=== PATIENT | male | born 1965 | race African-American/Black ===

== ENCOUNTER 2016-12-31 11:49 | Inpatient (IN) | payer OTHER ==
[2016-12-31 13:13] VITALS: BMI 19.5
--- NOTE | 2016-12-31 14:47 | HP ---
CIWA Score - CIWA Score Nausea/Vomitin (N/V) Muscle Tremors: 3 Anxiety: 4-Mod. Anxious/Guarded Agitation: 3 Paroxysmal Sweats: 1-Minimal Palms Moist Orientation: 0-Oriented Tacttile Disturbances: 3-Moderate Itch/Numb/Burn Auditory Disturbances: 0-None Visual Disturbances: 0-None Headache: 0-None Present CIWA-Ar Total Score: 19 Admission ROS BHS - HPI Chief Complaint: DETOX TX FOR ALCOHOL DEPENDENCE/INTOXICATION. "I NEEDED TO COME IN" Allergies/Adverse Reactions: Allergies Allergy/AdvReac Type Severity Reaction Status Date / Time No Known Allergies Allergy Verified 12/31/16 14:45 History of Present Illness: 51 Y/O AA/MALE WITH A HX OF ALCOHOL DEPENDENCE SEEKING DETOX TX. FIRST TIME HERE. Exam Limitations: No Limitations - Ebola screening Have you traveled outside of the country in the last 21 days: No Have you had contact with anyone from an Ebola affected area: No Have you been sick,other than usual withdrawal symptoms: No Do you have a fever: No - Review of Systems Constitutional: Chills, Loss of Appetite, Night Sweats, Changes in sleep, Unintentional Wgt. Loss EENT: reports: Blurred Vision (WEARS GLASSES), Dental Problems (IN POOR REPAIR/ ABSCESS RIGHT LOWER JAW.), Mouth Swelling (RIGHT LOWER JAW SWELLING) Respiratory: reports: No Symptoms reported Cardiac: reports: Lightheadedness GI: reports: Diarrhea, Nausea, Poor Appetite, Poor Fluid Intake, Vomiting, Indigestion, Abdominal cramping : reports: Frequency Musculoskeletal: reports: Back Pain, Joint Pain (CHRONIC LEFT KNEE PAIN/ LEFT SHOULDER PAIN), Joint Swelling (LEFT KNEE), Muscle Pain Integumentary: reports: No Symptoms Reported Neuro: reports: Headache, Numbness, Tingling, Tremors, Unsteady Gait, Dizziness Endocrine: reports: No Symptoms Reported Hematology: reports: No Symptoms Reported Psychiatric: reports: Orientated x3, Anxious Other Systems: Reviewed and Negative Patient History - Patient Medical History Hx Anemia: No Hx Asthma: No Hx Chronic Obstructive Pulmonary Disease (COPD): No Hx Cardiac Disorders: Yes ("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) Hx Hypertension: Yes (ON NORVASC) Hx Hypercholesterolemia: No HX Cerebrovascular Accident: No Hx Seizures: No Hx Diabetes: No Hx Gastrointestinal Disorders: Yes (DYSPEPSIA/STOMACH PAIN) Hx Genitourinary Disorders: No Hx Sexually Transmitted Disorders: No Hx Renal Disease (ESRD): No Hx Thyroid Disease: No Hx Human Immunodeficiency Virus (HIV): Yes (SINCE 2001;ATRIPLA) Hx Hepatitis C: No Hx Depression: No Hx Suicide Attempt: No (DENIES) Hx Bipolar Disorder: No Hx Schizophrenia: No - Patient Surgical History Past Surgical History: No Hx Neurologic Surgery: No Hx Cataract Extraction: No Hx Cardiac Surgery: No Hx Lung Surgery: No Hx Breast Surgery: No Hx Breast Biopsy: No Hx Abdominal Surgery: No Hx Appendectomy: No Hx Cholecystectomy: No Hx Genitourinary Surgery: No Hx Orthopedic Surgery: No Anesthesia Reaction: No - PPD History Previous Implant?: Yes Documented Results: Negative w/o proof Implanted On Prior R Admission?: No PPD to be Administered?: Yes - Reproductive History Patient is a Female of Child Bearing Age (11 -55 yrs old): No (MALE) Patient : (N/A) - Smoking Cessation Smoking history: Current every day smoker Have you smoked in the past 12 months: Yes Aproximately how many cigarettes per day: 5 Hx Chewing Tobacco Use: No Initiated information on smoking cessation: Yes 'Breaking Loose' booklet given: 12/31/16 - Substance & Tx. History Hx Alcohol Use: Yes (VODKA) Hx Substance Use: Yes (MARIJUANA) Substance Use Type: Alcohol, Marijuana Hx Substance Use Treatment: Yes (LAST TX AT [facility] DETOX) - Substances Abused VODKA Route: Oral Frequency: Daily Amount used: 2 PTS Age of first use: 16 Date of Last Use: 12/31/16 Marijuana/Hashish Route: Smoking Frequency: Daily Amount used: 2 $10 BAGS Age of first use: 9 Date of Last Use: 12/31/16 Family Disease History - Family Disease History Family Disease History: CA: Father (), Mother (STOMACH-) Admission Physical Exam BHS - Vital Signs Vital Signs: Vital Signs - 24 hr 12/31/16 13:02 Temperature 97.3 F L Pulse Rate 103 H Respiratory 20 Rate Blood Pressure 118/76 - Physical General Appearance: Yes: Moderate Distress, Alcohol on Breath, Intoxicated, Thin , Irritable, Anxious HEENTM: Yes: EOMI, Normocephalic, FAITH, Pharynx Normal, Nasal Congestion, Other (LEFT LOWER JAW SWELLING/) Respiratory: Yes: Chest Non-Tender, Lungs Clear, Normal Breath Sounds, No Respiratory Distress Neck: Yes: No masses,lesions,Nodules, Supple, Trachea in good position Breast: Yes: Breast Exam Deferred Cardiology: Yes: Regular Rhythm, S1, S2, Tachycardia Abdominal: Yes: Normal Bowel Sounds, Non Tender, Flat, Soft, Protuberent Genitourinary: Yes: Other (N/C) Musculoskeletal: Yes: full range of Motion, Gait Steady Extremities: Yes: Normal Range of Motion, Non-Tender Neurological: Yes: shuttle bus driver II-XII NML intact, Fully Oriented, Alert Integumentary: Yes: Dry, Warm Lymphatic: Yes: Within Normal Limits - Diagnostic (1) Alcohol dependence with uncomplicated withdrawal Current Visit: Yes Status: Acute (2) Cannabis dependence, uncomplicated Current Visit: Yes Status: Acute (3) HIV (human immunodeficiency virus infection) Current Visit: Yes Status: Chronic (4) Tooth abscess Current Visit: Yes Status: Acute (5) Knee pain, left Current Visit: Yes Status: Chronic Qualifiers: Chronicity: chronic Qualified Code(s): M25.562 - Pain in left knee; G89.29 - Other chronic pain Cleared for Admission BHS - Detox or Rehab Detox Regimen/Protocol: Librium S Breath Alcohol Content Breath Alcohol Content: 0.151 Urine Drug Screen - Results Drug Screen Negative: No Urine Drug Screen Results: THC-Marijuana
[2016-12-31] MEDS ORDERED: MAGNESIUM HYDROX 2400MG/30ML ORAL SUSPENSION 30 ML CUP PO PRN (15:33)
[2016-12-31] MEDS ORDERED: LOPERAMIDE HCL 2 MG CAPSULE PO PRN (15:33)
[2016-12-31] MEDS ORDERED: P-EPHED 60MG/TRIPROLIDI 2.5MG TABLET PO PRN (15:33)
[2016-12-31] MEDS ORDERED: IBUPROFEN 400 MG TABLET (FP) PO PRN (15:33)
[2016-12-31] MEDS ORDERED: chlordiazePOXIDE HCL 25 MG CAPSULE PO PRN (15:33)
[2016-12-31] MEDS ORDERED: NICOTINE POLACRILEX 2 MG GUM BC PRN (15:33)
[2016-12-31] MEDS ORDERED: MENTHOL/PHENOL 1 EACH UD MM PRN (15:33)
[2016-12-31] MEDS ORDERED: ACETAMINOPHEN 325 MG TABLET (FP) PO PRN (15:33)
[2016-12-31] MEDS ORDERED: MAG HYDROX/AL HYDROX/SIMETH 30 ML UNIT-DOSE CUP PO PRN (15:33)
[2016-12-31] MEDS ORDERED: guaiFENesin/D-METHORPHAN HB 10 ML UNIT-DOSE CUPS PO PRN (15:33)
[2016-12-31] MEDS ORDERED: MAGNESIUM CITRATE 300 ML BOTTLE PO PRN (15:33)
[2016-12-31] MEDS ORDERED: chlordiazePOXIDE HCL 25 MG CAPSULE PO ONE (18:00)
[2016-12-31] MEDS: CLINDAMYCIN HCL 150 MG CAPSULE (FP) PO SCH (20:30)
[2016-12-31] MEDS: NICOTINE 14 MG/24 HOURS TOPICAL PATCH TD SCH (20:31)
[2016-12-31] MEDS: chlordiazePOXIDE HCL 25 MG CAPSULE PO SCH ×2 (20:31→22:16)
[2016-12-31] MEDS: THIAMINE HCL 100 MG TABLET (FP) PO SCH (22:16)
[2016-12-31] MEDS: RANITIDINE HCL 150 MG TABLET (FP) PO SCH (22:16)
[2017-01-01 00:09] LABS: URINE APPEARANCE CLEAR; URINE BILIRUBIN NEGATIVE (NEGATIVE); URINE BLOOD NEGATIVE (NEGATIVE); URINE COLOR YELLOW; URINE GLUCOSE (UA) NEGATIVE (NEGATIVE); URINE KETONE NEGATIVE (NEGATIVE); URINE LEUK ESTERASE NEGATIVE (NEGATIVE); URINE NITRITE NEGATIVE (NEGATIVE); URINE PROTEIN NEGATIVE (NEGATIVE); URINE UROBILINOGEN NEGATIVE mg/dL (0.2-1.0)
[2017-01-01] MEDS: CLINDAMYCIN HCL 150 MG CAPSULE (FP) PO SCH ×4 (00:26→18:33)
[2017-01-01] MEDS: chlordiazePOXIDE HCL 25 MG CAPSULE PO SCH ×4 (05:06→22:11)
--- NOTE | 2017-01-01 09:22 | PN ---
S CIWA - CIWA Score Nausea/Vomitin Muscle Tremors: 3 Anxiety: 3 Agitation: 2 Paroxysmal Sweats: 1-Minimal Palms Moist Orientation: 0-Oriented Tacttile Disturbances: 1-Very Mild Itch/Numbness Auditory Disturbances: 1-Very Mild Visual Disturbances: 1-Very Mild Sensitivity Headache: 2-Mild CIWA-Ar Total Score: 17 BHS Progress Note (SOAP) Subjective: ALERT,IRRITABLE,ANXIOUS,INTERRUPTED SLEEP,TREMOR Objective: 01/01/17 09:19 Vital Signs Temperature 98.1 F 01/01/17 06:00 Pulse Rate 78 01/01/17 07:30 Respiratory Rate 18 01/01/17 07:30 Blood Pressure 153/87 01/01/17 07:30 O2 Sat by Pulse Oximetry (%) EKG NSR,ST IN V2 NO CHEST PAIN,NO SOB,NO DIZZINESS 01/01/17 09:20 Laboratory Last Values Urine Color Yellow 12/31/16 23:56 Urine Appearance Clear 12/31/16 23:56 Urine pH 5.0 (5.0-8.0) 12/31/16 23:56 Urine Protein Negative (NEGATIVE) 12/31/16 23:56 Urine Glucose (UA) Negative (NEGATIVE) 12/31/16 23:56 Urine Ketones Negative (NEGATIVE) 12/31/16 23:56 Urine Blood Negative (NEGATIVE) 12/31/16 23:56 Urine Nitrite Negative (NEGATIVE) 12/31/16 23:56 Urine Bilirubin Negative (NEGATIVE) 12/31/16 23:56 Urine Urobilinogen Negative mg/dL (0.2-1.0) 12/31/16 23:56 Ur Leukocyte Esterase Negative (NEGATIVE) 12/31/16 23:56 LABS PENDING Assessment: 01/01/17 09:21 WITHDRAWAL SYMPTOM Plan: CONTINUE DETOX
[2017-01-01] MEDS ORDERED: PATIENT'S OWN MEDICATION (NON-FORMULARY) (Efavirenz/Emtricitab/Tenofovir 1 TAB) PO SCH (10:00)
[2017-01-01] MEDS: NICOTINE 14 MG/24 HOURS TOPICAL PATCH TD SCH (10:00)
[2017-01-01 10:19] LABS: MCHC 34.3 g/dl (32.0-35.9); MEAN CELL VOLUME 104.9 fl (80-96); MEAN PLT VOLUME 8.3 fl (7.5-11.1); PLATELET COUNT 229 K/MM3 (134-434); RDW 12.9 % (11.9-15.9)
[2017-01-01 10:30] LABS: ALBUMIN 3.4 g/dl (3.4-5.0); ANION GAP 10 (8-16); CALCIUM 8.6 mg/dL (8.5-10.1); CO2 28 mmol/L (21-32); CREATININE 1.2 mg/dL (0.7-1.3); GLUCOSE,RANDOM 90 mg/dL (74-106); SGOT/AST 35 U/L (15-37); SGPT/ALT 32 U/L (12-78)
--- NOTE | 2017-01-01 10:30 | EKG ---
Test Reason : Blood Pressure : / mmHG Vent. Rate : 072 BPM Atrial Rate : 072 BPM P-R Int : 152 ms QRS Dur : 074 ms QT Int : 364 ms P-R-T Axes : 041 -28 024 degrees QTc Int : 398 ms NORMAL SINUS RHYTHM SEPTAL INFARCT , AGE UNDETERMINED ABNORMAL ECG NO PREVIOUS ECGS AVAILABLE Confirmed by AUGUSTO GONZALEZ MD ([id number]) on 01/01/2017 10:30:00 AM Referred By: Confirmed By:AUGUSTO GONZALEZ MD
[2017-01-01 10:31] LABS: ALK PHOS 84 U/L (45-117); TOT PROT 6.9 g/dl (6.4-8.2)
[2017-01-01] MEDS: EFAVIRENZ 600 MG TABLET PO SCH (10:50)
[2017-01-01] MEDS: PRENATAL VITAMINS W/ FOLIC ACID TABLET (FP) PO SCH (10:50)
[2017-01-01] MEDS: EMTRICITABINE 200MG/TENOFOVIR 300MG PO SCH (10:50)
[2017-01-01] MEDS: RANITIDINE HCL 150 MG TABLET (FP) PO SCH ×2 (10:51→22:11)
[2017-01-01] MEDS: amLODIPine BESYLATE 10 MG TABLET (FP) PO SCH (10:51)
[2017-01-01] MEDS: SULFAMETHOXAZOLE/TRIMETHOPRIM 800MG/160MG D.S. TABLET PO SCH (10:51)
[2017-01-01 13:54] LABS: SICKLE CELL SCREEN NEGATIVE (NEGATIVE)
[2017-01-01] MEDS: THIAMINE HCL 100 MG TABLET (FP) PO SCH (22:10)
[2017-01-01] MEDS: diphenhydrAMINE HCL 50 MG CAPSULE PO PRN (22:10)
[2017-01-02] MEDS: CLINDAMYCIN HCL 150 MG CAPSULE (FP) PO SCH ×4 (01:01→17:40)
[2017-01-02] MEDS: chlordiazePOXIDE HCL 25 MG CAPSULE PO SCH ×2 (05:12→10:19)
[2017-01-02] MEDS: SULFAMETHOXAZOLE/TRIMETHOPRIM 800MG/160MG D.S. TABLET PO SCH (10:19)
[2017-01-02] MEDS: PRENATAL VITAMINS W/ FOLIC ACID TABLET (FP) PO SCH (10:19)
[2017-01-02] MEDS: EFAVIRENZ 600 MG TABLET PO SCH (10:19)
[2017-01-02] MEDS: EMTRICITABINE 200MG/TENOFOVIR 300MG PO SCH (10:19)
[2017-01-02] MEDS: RANITIDINE HCL 150 MG TABLET (FP) PO SCH ×2 (10:19→22:24)
[2017-01-02] MEDS: amLODIPine BESYLATE 10 MG TABLET (FP) PO SCH (10:20)
[2017-01-02] MEDS: NICOTINE 14 MG/24 HOURS TOPICAL PATCH TD SCH (10:21)
--- NOTE | 2017-01-02 11:40 | PN ---
S CIWA - CIWA Score Nausea/Vomitin Muscle Tremors: 3 Anxiety: 3 Agitation: 2 Paroxysmal Sweats: 1-Minimal Palms Moist Orientation: 0-Oriented Tacttile Disturbances: 1-Very Mild Itch/Numbness Auditory Disturbances: 1-Very Mild Visual Disturbances: 1-Very Mild Sensitivity Headache: 2-Mild CIWA-Ar Total Score: 17 BHS Progress Note (SOAP) Subjective: alert,irritable,anxious,interrupted sleep,tremor Objective: 01/02/17 11:39 Vital Signs Temperature 97.7 F 01/02/17 09:51 Pulse Rate 96 H 01/02/17 09:51 Respiratory Rate 20 01/02/17 09:51 Blood Pressure 111/79 01/02/17 09:51 O2 Sat by Pulse Oximetry (%) Laboratory Last Values WBC 8.0 K/mm3 (4.0-10.0) 01/01/17 06:00 RBC 3.08 M/mm3 (4.00-5.60) L 01/01/17 06:00 Hgb 11.1 GM/dL (11.7-16.9) L 01/01/17 06:00 Hct 32.3 % (35.4-49) L 01/01/17 06:00 MCV 104.9 fl (80-96) H 01/01/17 06:00 MCH 36.0 pg (25.7-33.7) H 01/01/17 06:00 MCHC 34.3 g/dl (32.0-35.9) 01/01/17 06:00 RDW 12.9 % (11.9-15.9) 01/01/17 06:00 Plt Count 229 K/MM3 (134-434) 01/01/17 06:00 MPV 8.3 fl (7.5-11.1) 01/01/17 06:00 Sickle Cell Screen Negative (NEGATIVE) 01/01/17 06:00 Sodium 142 mmol/L (136-145) 01/01/17 06:00 Potassium 3.6 mmol/L (3.5-5.1) 01/01/17 06:00 Chloride 104 mmol/L (98-107) 01/01/17 06:00 Carbon Dioxide 28 mmol/L (21-32) 01/01/17 06:00 Anion Gap 10 (8-16) 01/01/17 06:00 BUN 19 mg/dL (7-18) H 01/01/17 06:00 Creatinine 1.2 mg/dL (0.7-1.3) 01/01/17 06:00 Creat Clearance w eGFR > 60 (>60) 01/01/17 06:00 Random Glucose 90 mg/dL (74-106) 01/01/17 06:00 Calcium 8.6 mg/dL (8.5-10.1) 01/01/17 06:00 Total Bilirubin 1.0 mg/dL (0.2-1.0) 01/01/17 06:00 AST 35 U/L (15-37) 01/01/17 06:00 ALT 32 U/L (12-78) 01/01/17 06:00 Alkaline Phosphatase 84 U/L (45-117) 01/01/17 06:00 Total Protein 6.9 g/dl (6.4-8.2) 01/01/17 06:00 Albumin 3.4 g/dl (3.4-5.0) 01/01/17 06:00 Urine Color Yellow 12/31/16 23:56 Urine Appearance Clear 12/31/16 23:56 Urine pH 5.0 (5.0-8.0) 12/31/16 23:56 Ur Specific Fleming 1.015 (1.005-1.025) 12/31/16 23:56 Urine Protein Negative (NEGATIVE) 12/31/16 23:56 Urine Glucose (UA) Negative (NEGATIVE) 12/31/16 23:56 Urine Ketones Negative (NEGATIVE) 12/31/16 23:56 Urine Blood Negative (NEGATIVE) 12/31/16 23:56 Urine Nitrite Negative (NEGATIVE) 12/31/16 23:56 Urine Bilirubin Negative (NEGATIVE) 12/31/16 23:56 Urine Urobilinogen Negative mg/dL (0.2-1.0) 12/31/16 23:56 Ur Leukocyte Esterase Negative (NEGATIVE) 12/31/16 23:56 RPR Titer Nonreactive (NONREACTIVE) 01/01/17 06:00 Assessment: 01/02/17 11:39 withdrawal symptom Plan: continue detox
[2017-01-02] MEDS: chlordiazePOXIDE 5 MG CAPSULE PO SCH ×2 (17:39→22:24)
[2017-01-02] MEDS: THIAMINE HCL 100 MG TABLET (FP) PO SCH (22:24)
[2017-01-03] MEDS: CLINDAMYCIN HCL 150 MG CAPSULE (FP) PO SCH ×4 (00:04→17:40)
[2017-01-03] MEDS: chlordiazePOXIDE 5 MG CAPSULE PO SCH ×2 (05:17→10:25)
[2017-01-03] MEDS: PRENATAL VITAMINS W/ FOLIC ACID TABLET (FP) PO SCH (10:25)
[2017-01-03] MEDS: RANITIDINE HCL 150 MG TABLET (FP) PO SCH ×2 (10:25→22:33)
[2017-01-03] MEDS: SULFAMETHOXAZOLE/TRIMETHOPRIM 800MG/160MG D.S. TABLET PO SCH (10:25)
[2017-01-03] MEDS: amLODIPine BESYLATE 10 MG TABLET (FP) PO SCH (10:26)
[2017-01-03] MEDS: EMTRICITABINE 200MG/TENOFOVIR 300MG PO SCH (10:26)
[2017-01-03] MEDS: NICOTINE 14 MG/24 HOURS TOPICAL PATCH TD SCH (10:26)
[2017-01-03] MEDS: EFAVIRENZ 600 MG TABLET PO SCH (10:26)
--- NOTE | 2017-01-03 12:04 | PN ---
S Progress Note (SOAP) Subjective: ALERT,IRRITABLE,ANXIOUS,INTERRUPTED SLEEP Objective: 01/03/17 12:03 Vital Signs Temperature 97 F L 01/03/17 10:35 Pulse Rate 77 01/03/17 10:35 Respiratory Rate 18 01/03/17 10:35 Blood Pressure 114/72 01/03/17 10:35 O2 Sat by Pulse Oximetry (%) Assessment: 01/03/17 12:03 WITHDRAWAL SYMPTOM Plan: CONTINUE DETOX
[2017-01-03] MEDS: chlordiazePOXIDE HCL 10 MG CAPSULE PO SCH ×2 (17:39→22:33)
[2017-01-03] MEDS: THIAMINE HCL 100 MG TABLET (FP) PO SCH (22:33)
[2017-01-03] MEDS: diphenhydrAMINE HCL 50 MG CAPSULE PO PRN (22:34)
[2017-01-04] MEDS: chlordiazePOXIDE HCL 10 MG CAPSULE PO SCH (05:09)
[2017-01-04] MEDS: CLINDAMYCIN HCL 150 MG CAPSULE (FP) PO SCH (05:11)
--- NOTE | 2017-01-04 08:43 | DS ---
[facility] Detox Discharge Summary Admission Date: 12/31/16 Discharge Date: 01/04/17 - History Present History: Alcohol Dependence, Cocaine Dependence Additional Comments: FOLLOW UP WITH AFTER CARE PROGRAM ARRANGEMENT Pertinent Past History: HIV TOOTH ABSCESS LEFT KNEE PAIN - Physical Exam Results Vital Signs: Vital Signs Temperature 98.1 F 01/04/17 06:14 Pulse Rate 73 01/04/17 06:14 Respiratory Rate 18 01/04/17 06:14 Blood Pressure 116/76 01/04/17 06:14 O2 Sat by Pulse Oximetry (%) Pertinent Admission Physical Exam Findings: WITHDRAWAL FINDING - Treatment Hospital Course: Detox Protocol Followed, Detoxed Safely, Responded well, Discharged Condition Good Patient has Accepted a Rehab Referral to: DECLINED - Medication Discharge Medications: Ambulatory Orders Amlodipine Besylate [Norvasc -] 10 mg PO DAILY 12/31/16 Efavirenz/Emtricitab/Tenofovir [Atripla -] 1 tab PO DAILY 12/31/16 - Diagnosis (1) Hypertension Current Visit: Yes Status: Acute - AMA Did Patient Leave Against Medical Advice: No
[2017-01-04 10:37] VITALS: BP 106/71; PULSE 81; TEMP 97.5
== END 2017-01-04 09:15 | disposition home or self-care (01) | DRG 775 ==
LOC: YASAS 11:49 → Y6N 17:15
PROVIDERS: ADMIT Internal Medicine; ATTEND Internal Medicine Addiction Medicine
PROC: HZ2ZZZZ Detoxification Services for Substance Abuse Treatment (ICD-10-PCS; principal; 2016-12-31)
DX: F10.230 Alcohol dependence with withdrawal, uncomplicated (principal); F12.20 Cannabis dependence, uncomplicated; F17.210 Nicotine dependence, cigarettes, uncomplicated; R01.1 Cardiac murmur, unspecified; I10 Essential (primary) hypertension; K04.7 Periapical abscess without sinus; M25.562 Pain in left knee; G89.29 Other chronic pain
CPT/HCPCS: 36415; 80053; 81003; 85027; 85660; 86593; 93005; 93010

== ENCOUNTER 2020-11-11 18:38 | Inpatient (IN) | payer OTHER ==
[2020-11-11 19:30] VITALS: BMI 18.5
[2020-11-11] MEDS ORDERED: NICOTINE POLACRILEX 2 MG GUM BUC PRN (20:39)
[2020-11-11] MEDS ORDERED: IBUPROFEN 400 MG TABLET (FP) PO PRN (20:39)
[2020-11-11] MEDS ORDERED: MAG HYDROX/AL HYDROX/SIMETH 30 ML UNIT-DOSE CUP PO PRN (20:39)
[2020-11-11] MEDS ORDERED: MENTHOL/PHENOL 1 EACH UD MM PRN (20:39)
[2020-11-11] MEDS ORDERED: ACETAMINOPHEN 325 MG TABLET (FP) PO PRN ×2 (20:39)
[2020-11-11] MEDS ORDERED: MAGNESIUM CITRATE 300 ML BOTTLE PO PRN (20:39)
[2020-11-11] MEDS ORDERED: ONDANSETRON *ODT* 4 MG TABLET SL PRN (20:39)
[2020-11-11] MEDS ORDERED: MAGNESIUM HYDROX 2400MG/30ML ORAL SUSPENSION 30 ML CUP PO PRN (20:39)
[2020-11-11] MEDS ORDERED: BISMUTH SUBSALICYLATE 524 MG/30 ML PO PRN (20:39)
[2020-11-11] MEDS ORDERED: diazePAM 5 MG TABLET PO PRN (20:39)
[2020-11-11] MEDS: diazePAM 5 MG TABLET PO SCH (22:59)
[2020-11-11] MEDS: MELATONIN 5 MG TABLETS PO SCH (23:00)
[2020-11-11] MEDS: THIAMINE HCL 100 MG TABLET (FP) PO SCH (23:02)
[2020-11-12] MEDS: diazePAM 5 MG TABLET PO SCH ×4 (05:30→22:25)
[2020-11-12] MEDS ORDERED: FAMOTIDINE 20 MG PO SCH (10:00)
[2020-11-12] MEDS ORDERED: BICTEGRAV/EMTRICIT/TENOFOV (BIKTARVY) 50-200-25 MG TABLET PO SCH (10:00)
[2020-11-12 10:23] LABS: HEMATOCRIT 36.4 % (35.4-49); HEMOGLOBIN 11.8 GM/dL (11.7-16.9); MCH 32.9 pg (25.7-33.7); MCHC 32.5 g/dl (32.0-35.9); MEAN CELL VOLUME 101.4 fl (80-96); MEAN PLT VOLUME 7.7 fl (7.5-11.1); PLATELET COUNT 221 10^3/uL (134-434); RBC 3.59 M/mm3 (4.00-5.60); RDW 14.8 % (11.9-15.9)
[2020-11-12 10:27] LABS: ALBUMIN 3.4 g/dl (3.4-5.0); BLOOD UREA NITROGEN 9.9 mg/dL (7-18); CALCIUM 8.9 mg/dL (8.5-10.1)
[2020-11-12] MEDS: amLODIPine BESYLATE 10 MG TABLET (FP) PO SCH (10:27)
[2020-11-12] MEDS: PRENATAL VITAMINS W/ FOLIC ACID TABLET (FP) PO SCH (10:29)
[2020-11-12] MEDS: NICOTINE 14 MG/24 HOURS TOPICAL PATCH TD SCH (10:29)
[2020-11-12 10:32] LABS: BILIRUBIN,TOTAL 0.4 mg/dL (0.2-1)
[2020-11-12] MEDS: PATIENT'S OWN MEDICATION (NON-FORMULARY) (Omeprazole [Omeprazole] 20 MG Tablet.Dr) PO SCH (11:51)
[2020-11-12] MEDS: ELVITEG/COB/EMTRI/TENOF (GENVOYA) TABLET (NF) PO SCH (11:51)
[2020-11-12] MEDS: FOLIC ACID 1 MG TABLET (FP) PO SCH (13:31)
[2020-11-12] MEDS ORDERED: POTASSIUM CHLORIDE ORAL LIQUID 20 MEQ/15 ML PO ONE ×2 (16:00→20:00)
[2020-11-12] MEDS: THIAMINE HCL 100 MG TABLET (FP) PO SCH (22:25)
[2020-11-12] MEDS: MELATONIN 5 MG TABLETS PO SCH (22:26)
[2020-11-13] MEDS: diazePAM 5 MG TABLET PO SCH ×3 (05:38→22:19)
[2020-11-13] MEDS: ELVITEG/COB/EMTRI/TENOF (GENVOYA) TABLET (NF) PO SCH (08:17)
[2020-11-13] MEDS: NAPROXEN 250 MG TABLET PO PRN ×2 (10:25→22:22)
[2020-11-13] MEDS: FOLIC ACID 1 MG TABLET (FP) PO SCH (10:25)
[2020-11-13] MEDS: PRENATAL VITAMINS W/ FOLIC ACID TABLET (FP) PO SCH (10:25)
[2020-11-13] MEDS: PATIENT'S OWN MEDICATION (NON-FORMULARY) (Omeprazole [Omeprazole] 20 MG Tablet.Dr) PO SCH (10:25)
[2020-11-13] MEDS: amLODIPine BESYLATE 10 MG TABLET (FP) PO SCH (10:25)
[2020-11-13] MEDS: NICOTINE 14 MG/24 HOURS TOPICAL PATCH TD SCH (10:26)
[2020-11-13] MEDS: METHOCARBAMOL 500 MG TABLET PO PRN (14:01)
[2020-11-13] MEDS: MELATONIN 5 MG TABLETS PO SCH (22:19)
[2020-11-13] MEDS: THIAMINE HCL 100 MG TABLET (FP) PO SCH (22:20)
[2020-11-14] MEDS: diazePAM 5 MG TABLET PO SCH ×2 (05:58→17:45)
[2020-11-14] MEDS: ELVITEG/COB/EMTRI/TENOF (GENVOYA) TABLET (NF) PO SCH (07:18)
[2020-11-14] MEDS: NICOTINE 14 MG/24 HOURS TOPICAL PATCH TD SCH (10:32)
[2020-11-14] MEDS: PRENATAL VITAMINS W/ FOLIC ACID TABLET (FP) PO SCH (10:32)
[2020-11-14] MEDS: amLODIPine BESYLATE 10 MG TABLET (FP) PO SCH (10:32)
[2020-11-14] MEDS: FOLIC ACID 1 MG TABLET (FP) PO SCH (10:32)
[2020-11-14] MEDS: PATIENT'S OWN MEDICATION (NON-FORMULARY) (Omeprazole [Omeprazole] 20 MG Tablet.Dr) PO SCH (10:34)
[2020-11-14] MEDS: MELATONIN 5 MG TABLETS PO SCH (22:29)
[2020-11-14] MEDS: THIAMINE HCL 100 MG TABLET (FP) PO SCH (22:29)
[2020-11-14] MEDS: NAPROXEN 250 MG TABLET PO PRN (22:30)
[2020-11-15] MEDS: METHOCARBAMOL 500 MG TABLET PO PRN (05:47)
[2020-11-15] MEDS ORDERED: diazePAM 5 MG TABLET PO ONE (06:00)
[2020-11-15] MEDS: ELVITEG/COB/EMTRI/TENOF (GENVOYA) TABLET (NF) PO SCH (07:05)
[2020-11-15 09:39] VITALS: BP 125/84; PULSE 66; TEMP 96.8
[2020-11-15] MEDS ORDERED: POTASSIUM CHLORIDE TABS 20 MEQ TABLET.ER (FP) PO SCH (10:00)
[2020-11-15 14:08] LABS: SARS-CoV-2 NAA Not Detected (Not Detected)
== END 2020-11-15 09:41 | disposition home or self-care (01) | DRG 774 ==
LOC: YASAS 18:38 → Y6N 21:14 → Y3N 11-13 14:45
PROVIDERS: ADMIT Allergy & Immunology; ATTEND Allergy & Immunology
PROC: HZ2ZZZZ Detoxification Services for Substance Abuse Treatment (ICD-10-PCS; principal; 2020-11-11)
DX: F10.230 Alcohol dependence with withdrawal, uncomplicated (principal); F14.10 Cocaine abuse, uncomplicated; F12.20 Cannabis dependence, uncomplicated; F17.210 Nicotine dependence, cigarettes, uncomplicated; F19.24 Other psychoactive substance dependence with psychoactive substance-induced mood disorder; F19.280 Other psychoactive substance dependence with psychoactive substance-induced anxiety disorder; F19.282 Other psychoactive substance dependence with psychoactive substance-induced sleep disorder; F41.9 Anxiety disorder, unspecified; F32.9 Major depressive disorder, single episode, unspecified; I10 Essential (primary) hypertension; E87.6 Hypokalemia; K21.9 Gastro-esophageal reflux disease without esophagitis; Z21 Asymptomatic human immunodeficiency virus [HIV] infection status; R01.1 Cardiac murmur, unspecified; M19.90 Unspecified osteoarthritis, unspecified site; Z86.79 Personal history of other diseases of the circulatory system; Z56.0 Unemployment, unspecified
CPT/HCPCS: 36415; 80053; 84132; 85027; 86780; 93005; 93010; C9803; U0003; U0005

== ENCOUNTER 2021-03-18 09:35 | Inpatient (IN) | payer OTHER ==
[2021-03-18] MEDS ORDERED: MAG HYDROX/AL HYDROX/SIMETH 30 ML UNIT-DOSE CUP PO PRN (09:57)
[2021-03-18] MEDS ORDERED: NICOTINE 10 MG CARTRIDGE (INHALER) IH PRN (09:57)
[2021-03-18] MEDS ORDERED: ACETAMINOPHEN 325 MG TABLET (FP) PO PRN (09:57)
[2021-03-18] MEDS ORDERED: MENTHOL/PHENOL 1 EACH UD MM PRN (09:57)
[2021-03-18] MEDS ORDERED: MAGNESIUM CITRATE 300 ML BOTTLE PO PRN (09:57)
[2021-03-18] MEDS ORDERED: diazePAM 5 MG TABLET PO PRN (09:57)
[2021-03-18] MEDS ORDERED: BISMUTH SUBSALICYLATE 262 MG/15 ML BTL PO PRN (09:57)
[2021-03-18] MEDS ORDERED: ONDANSETRON *ODT* 4 MG TABLET SL PRN (09:57)
[2021-03-18] MEDS ORDERED: MAGNESIUM HYDROX 2400MG/30ML ORAL SUSPENSION 30 ML CUP PO PRN (09:57)
[2021-03-18] MEDS ORDERED: hydrOXYzine PAMOATE 25 MG CAPSULE (FP) PO SCH (10:00)
[2021-03-18 10:14] VITALS: BMI 19.1
[2021-03-18] MEDS ORDERED: hydrOXYzine PAMOATE 25 MG CAPSULE (FP) PO PRN (11:23)
[2021-03-18] MEDS: NICOTINE 7 MG/24 HOURS TOPICAL PATCH TD SCH (11:49)
[2021-03-18] MEDS: diazePAM 5 MG TABLET PO SCH ×3 (11:50→22:10)
[2021-03-18] MEDS: PRENATAL VITAMINS W/ FOLIC ACID TABLET (FP) PO SCH (11:53)
[2021-03-18 14:55] LABS: HEMATOCRIT 37.5 % (35.4-49); HEMOGLOBIN 12.8 GM/dL (11.7-16.9); MCH 34.2 pg (25.7-33.7); MCHC 34.2 g/dl (32.0-35.9); MEAN CELL VOLUME 100.3 fl (80-96); MEAN PLT VOLUME 7.2 fl (7.5-11.1); PLATELET COUNT 278 10^3/uL (134-434); RBC 3.74 M/mm3 (4.00-5.60); RDW 13.5 % (11.9-15.9); WHITE BLOOD COUNT 4.7 K/mm3 (4.0-10.0)
[2021-03-18 15:02] LABS: BLOOD UREA NITROGEN 9.7 mg/dL (7-18); CALCIUM 9.4 mg/dL (8.5-10.1)
[2021-03-18 15:06] LABS: CREATININE 1.1 mg/dL (0.55-1.3)
[2021-03-18 15:07] LABS: BILIRUBIN,TOTAL 0.9 mg/dL (0.2-1); TOT PROT 7.8 g/dl (6.4-8.2)
[2021-03-18] MEDS: GABAPENTIN 100 MG CAPSULE PO SCH (22:10)
[2021-03-18] MEDS: THIAMINE HCL 100 MG TABLET (FP) PO SCH (22:10)
[2021-03-18] MEDS: MELATONIN 5 MG TABLETS PO SCH (22:10)
[2021-03-18] MEDS: METHOCARBAMOL 500 MG TABLET PO PRN (22:10)
[2021-03-19] MEDS: diazePAM 5 MG TABLET PO SCH ×4 (05:15→22:15)
[2021-03-19] MEDS: ELVITEG/COB/EMTRI/TENOF (GENVOYA) TABLET (NF) PO SCH (07:05)
[2021-03-19] MEDS ORDERED: PANTOPRAZOLE 40 MG TABLET PO SCH (10:00)
[2021-03-19] MEDS: PRENATAL VITAMINS W/ FOLIC ACID TABLET (FP) PO SCH (10:37)
[2021-03-19] MEDS: amLODIPine BESYLATE 10 MG TABLET (FP) PO SCH (10:38)
[2021-03-19] MEDS: GABAPENTIN 100 MG CAPSULE PO SCH ×2 (10:38→22:15)
[2021-03-19] MEDS: NICOTINE 7 MG/24 HOURS TOPICAL PATCH TD SCH (10:38)
[2021-03-19] MEDS: METHOCARBAMOL 500 MG TABLET PO PRN (10:40)
[2021-03-19] MEDS: FAMOTIDINE 20 MG TABLET PO SCH (10:40)
[2021-03-19] MEDS ORDERED: FLU VACC QS2021-22(6MOS UP)/PF 60 MCG/0.5 ML SYRINGE IM ONE (12:00)
[2021-03-19] MEDS: ACETAMINOPHEN 325 MG TABLET (FP) PO PRN (17:35)
[2021-03-19] MEDS: THIAMINE HCL 100 MG TABLET (FP) PO SCH (22:15)
[2021-03-19] MEDS: MELATONIN 5 MG TABLETS PO SCH (22:15)
[2021-03-20] MEDS: diazePAM 5 MG TABLET PO SCH ×3 (05:11→22:12)
[2021-03-20] MEDS: ELVITEG/COB/EMTRI/TENOF (GENVOYA) TABLET (NF) PO SCH (07:05)
[2021-03-20] MEDS: GABAPENTIN 100 MG CAPSULE PO SCH ×2 (10:12→22:12)
[2021-03-20] MEDS: amLODIPine BESYLATE 10 MG TABLET (FP) PO SCH (10:12)
[2021-03-20] MEDS: FAMOTIDINE 20 MG TABLET PO SCH (10:12)
[2021-03-20] MEDS: PRENATAL VITAMINS W/ FOLIC ACID TABLET (FP) PO SCH (10:12)
[2021-03-20] MEDS: NICOTINE 7 MG/24 HOURS TOPICAL PATCH TD SCH (10:14)
[2021-03-20] MEDS: METHOCARBAMOL 500 MG TABLET PO PRN (10:14)
[2021-03-20] MEDS: MELATONIN 5 MG TABLETS PO SCH (22:12)
[2021-03-20] MEDS: THIAMINE HCL 100 MG TABLET (FP) PO SCH (22:12)
[2021-03-21] MEDS: diazePAM 5 MG TABLET PO SCH ×2 (06:02→17:31)
[2021-03-21] MEDS: IBUPROFEN 400 MG TABLET (FP) PO PRN ×2 (06:04→17:32)
[2021-03-21] MEDS: ELVITEG/COB/EMTRI/TENOF (GENVOYA) TABLET (NF) PO SCH (07:04)
[2021-03-21] MEDS: amLODIPine BESYLATE 10 MG TABLET (FP) PO SCH (10:09)
[2021-03-21] MEDS: GABAPENTIN 100 MG CAPSULE PO SCH ×2 (10:09→22:10)
[2021-03-21] MEDS: FAMOTIDINE 20 MG TABLET PO SCH (10:09)
[2021-03-21] MEDS: NICOTINE 7 MG/24 HOURS TOPICAL PATCH TD SCH (10:10)
[2021-03-21] MEDS: ACETAMINOPHEN 325 MG TABLET (FP) PO PRN (10:10)
[2021-03-21] MEDS: PRENATAL VITAMINS W/ FOLIC ACID TABLET (FP) PO SCH (10:12)
[2021-03-21] MEDS: MELATONIN 5 MG TABLETS PO SCH (22:11)
[2021-03-21] MEDS: METHOCARBAMOL 500 MG TABLET PO PRN (22:11)
[2021-03-21] MEDS: THIAMINE HCL 100 MG TABLET (FP) PO SCH (22:11)
[2021-03-22] MEDS ORDERED: diazePAM 5 MG TABLET PO ONE (06:00)
[2021-03-22] MEDS: ELVITEG/COB/EMTRI/TENOF (GENVOYA) TABLET (NF) PO SCH (07:23)
[2021-03-22 10:08] VITALS: BP 140/94; PULSE 97; TEMP 97.3
[2021-03-22] MEDS: GABAPENTIN 100 MG CAPSULE PO SCH (11:33)
[2021-03-22] MEDS: NICOTINE 7 MG/24 HOURS TOPICAL PATCH TD SCH (11:33)
[2021-03-22] MEDS: PRENATAL VITAMINS W/ FOLIC ACID TABLET (FP) PO SCH (11:34)
[2021-03-22] MEDS: FAMOTIDINE 20 MG TABLET PO SCH (11:34)
[2021-03-22] MEDS: amLODIPine BESYLATE 10 MG TABLET (FP) PO SCH (11:34)
== END 2021-03-22 10:17 | disposition home or self-care (01) | DRG 774 ==
LOC: YASAS 09:35 → Y3N 10:31
PROVIDERS: ADMIT Allergy & Immunology; ATTEND Allergy & Immunology
PROC: HZ2ZZZZ Detoxification Services for Substance Abuse Treatment (ICD-10-PCS; principal; 2021-03-18)
DX: F10.230 Alcohol dependence with withdrawal, uncomplicated (principal); F14.20 Cocaine dependence, uncomplicated; F12.20 Cannabis dependence, uncomplicated; F17.210 Nicotine dependence, cigarettes, uncomplicated; F19.280 Other psychoactive substance dependence with psychoactive substance-induced anxiety disorder; F19.282 Other psychoactive substance dependence with psychoactive substance-induced sleep disorder; F19.24 Other psychoactive substance dependence with psychoactive substance-induced mood disorder; F32.9 Major depressive disorder, single episode, unspecified; F41.9 Anxiety disorder, unspecified; M19.90 Unspecified osteoarthritis, unspecified site; M54.89 Other dorsalgia; G89.29 Other chronic pain; K08.109 Complete loss of teeth, unspecified cause, unspecified class; Z96.652 Presence of left artificial knee joint; Z87.19 Personal history of other diseases of the digestive system
CPT/HCPCS: 36415; 80053; 85027; 86780; 90686; C9803; U0003; U0005

== ENCOUNTER 2021-08-26 12:21 | Inpatient (IN) | payer OTHER ==
[2021-08-26] MEDS ORDERED: chlordiazePOXIDE HCL 25 MG CAPSULE PO PRN (13:35)
[2021-08-26] MEDS ORDERED: MAGNESIUM HYDROX 2400MG/30ML ORAL SUSPENSION 30 ML CUP PO PRN (13:35)
[2021-08-26] MEDS ORDERED: MAG HYDROX/AL HYDROX/SIMETH 30 ML UNIT-DOSE CUP PO PRN (13:35)
[2021-08-26] MEDS ORDERED: ACETAMINOPHEN 325 MG TABLET (FP) PO PRN ×2 (13:35)
[2021-08-26] MEDS ORDERED: IBUPROFEN 400 MG TABLET (FP) PO PRN (13:35)
[2021-08-26] MEDS ORDERED: LOPERAMIDE HCL 2 MG CAPSULE PO PRN (13:35)
[2021-08-26] MEDS ORDERED: DICYCLOMINE HCL 10 MG CAPSULE PO PRN (13:35)
[2021-08-26] MEDS ORDERED: BENZOCAINE/MENTHOL (CHLORASEPTIC ) LOZENGE MM PRN (13:35)
[2021-08-26] MEDS ORDERED: BISMUTH SUBSALICYLATE 262 MG/15 ML BTL PO PRN (13:35)
[2021-08-26] MEDS ORDERED: MAGNESIUM CITRATE 300 ML BOTTLE PO PRN (13:35)
[2021-08-26] MEDS ORDERED: ONDANSETRON *ODT* 4 MG TABLET SL PRN (13:35)
[2021-08-26] MEDS ORDERED: FAMOTIDINE 20 MG TABLET PO SCH (13:45)
[2021-08-26] MEDS ORDERED: amLODIPine BESYLATE 10 MG TABLET (FP) PO SCH (13:45)
[2021-08-26 15:42] VITALS: BMI 19.4
[2021-08-26] MEDS: hydrOXYzine PAMOATE 25 MG CAPSULE (FP) PO SCH ×3 (18:24→22:25)
[2021-08-26] MEDS: PRENATAL VITAMINS W/ FOLIC ACID TABLET (FP) PO SCH (18:37)
[2021-08-26] MEDS: amLODIPine BESYLATE 10 MG TABLET (FP) PO SCH (18:37)
[2021-08-26] MEDS: FAMOTIDINE 20 MG TABLET PO SCH (18:37)
[2021-08-26] MEDS: THIAMINE HCL 100 MG TABLET (FP) PO SCH (22:25)
[2021-08-26] MEDS: MELATONIN 5 MG TABLETS PO SCH (22:25)
[2021-08-26] MEDS: chlordiazePOXIDE HCL 25 MG CAPSULE PO SCH (22:25)
[2021-08-27] MEDS: hydrOXYzine PAMOATE 25 MG CAPSULE (FP) PO SCH ×5 (05:24→22:28)
[2021-08-27] MEDS: chlordiazePOXIDE HCL 25 MG CAPSULE PO SCH ×4 (05:24→22:28)
[2021-08-27] MEDS: amLODIPine BESYLATE 10 MG TABLET (FP) PO SCH (10:24)
[2021-08-27] MEDS: PRENATAL VITAMINS W/ FOLIC ACID TABLET (FP) PO SCH (10:24)
[2021-08-27] MEDS: FAMOTIDINE 20 MG TABLET PO SCH (10:24)
[2021-08-27 10:44] LABS: HEMOGLOBIN 12.1 GM/dL (11.7-16.9); MCH 34.2 pg (25.7-33.7); MCHC 33.7 g/dl (32.0-35.9); MEAN CELL VOLUME 101.3 fl (80-96); MEAN PLT VOLUME 7.4 fl (7.5-11.1); PLATELET COUNT 225 10^3/uL (134-434); RBC 3.55 M/mm3 (4.00-5.60); RDW 13.7 % (11.9-15.9); WHITE BLOOD COUNT 6.6 K/mm3 (4.0-10.0)
[2021-08-27 10:58] LABS: CALCIUM 8.6 mg/dL (8.5-10.1)
[2021-08-27 10:59] LABS: ALBUMIN 3.1 g/dl (3.4-5.0); BLOOD UREA NITROGEN 8.6 mg/dL (7-18)
[2021-08-27 11:04] LABS: BILIRUBIN,TOTAL 1.1 mg/dL (0.2-1); TOT PROT 6.4 g/dl (6.4-8.2)
[2021-08-27] MEDS: ELVITEG/COB/EMTRI/TENOF (GENVOYA) TABLET (NF) PO SCH (11:15)
[2021-08-27] MEDS: METHOCARBAMOL 500 MG TABLET PO PRN (13:15)
[2021-08-27] MEDS ORDERED: POTASSIUM CHLORIDE ORAL LIQUID 20 MEQ/15 ML PO ONE (14:02)
[2021-08-27] MEDS: THIAMINE HCL 100 MG TABLET (FP) PO SCH (22:28)
[2021-08-27] MEDS: MELATONIN 5 MG TABLETS PO SCH (22:28)
[2021-08-27] MEDS: POTASSIUM CHLORIDE ORAL LIQUID 20 MEQ/15 ML PO SCH (22:28)
[2021-08-28] MEDS: chlordiazePOXIDE HCL 25 MG CAPSULE PO SCH ×4 (05:37→22:18)
[2021-08-28] MEDS: hydrOXYzine PAMOATE 25 MG CAPSULE (FP) PO SCH ×5 (05:37→22:17)
[2021-08-28] MEDS: NICOTINE 10 MG CARTRIDGE (INHALER) IH PRN (05:40)
[2021-08-28] MEDS: ELVITEG/COB/EMTRI/TENOF (GENVOYA) TABLET (NF) PO SCH (07:34)
[2021-08-28] MEDS: amLODIPine BESYLATE 10 MG TABLET (FP) PO SCH (10:13)
[2021-08-28] MEDS: PRENATAL VITAMINS W/ FOLIC ACID TABLET (FP) PO SCH (10:13)
[2021-08-28] MEDS: POTASSIUM CHLORIDE ORAL LIQUID 20 MEQ/15 ML PO SCH ×2 (10:13→22:18)
[2021-08-28] MEDS: FAMOTIDINE 20 MG TABLET PO SCH (10:13)
[2021-08-28 14:08] LABS: SARS-CoV-2 NAA Not Detected (Not Detected)
[2021-08-28] MEDS: MELATONIN 5 MG TABLETS PO SCH (22:17)
[2021-08-28] MEDS: THIAMINE HCL 100 MG TABLET (FP) PO SCH (22:18)
[2021-08-29] MEDS ORDERED: chlordiazePOXIDE HCL 10 MG CAPSULE PO PRN
[2021-08-29] MEDS: hydrOXYzine PAMOATE 25 MG CAPSULE (FP) PO SCH ×5 (05:51→22:44)
[2021-08-29] MEDS: chlordiazePOXIDE HCL 10 MG CAPSULE PO SCH ×4 (05:51→22:44)
[2021-08-29] MEDS: PRENATAL VITAMINS W/ FOLIC ACID TABLET (FP) PO SCH (10:28)
[2021-08-29] MEDS: FAMOTIDINE 20 MG TABLET PO SCH (10:28)
[2021-08-29] MEDS: amLODIPine BESYLATE 10 MG TABLET (FP) PO SCH (10:29)
[2021-08-29] MEDS: ELVITEG/COB/EMTRI/TENOF (GENVOYA) TABLET (NF) PO SCH (11:48)
[2021-08-29] MEDS: MELATONIN 5 MG TABLETS PO SCH (22:44)
[2021-08-29] MEDS: THIAMINE HCL 100 MG TABLET (FP) PO SCH (22:44)
[2021-08-29] MEDS: METHOCARBAMOL 500 MG TABLET PO PRN (22:44)
[2021-08-30] MEDS: chlordiazePOXIDE HCL 10 MG CAPSULE PO SCH ×2 (05:24→17:58)
[2021-08-30] MEDS: hydrOXYzine PAMOATE 25 MG CAPSULE (FP) PO SCH ×5 (05:24→22:56)
[2021-08-30] MEDS: ELVITEG/COB/EMTRI/TENOF (GENVOYA) TABLET (NF) PO SCH (07:28)
[2021-08-30] MEDS: PRENATAL VITAMINS W/ FOLIC ACID TABLET (FP) PO SCH (10:21)
[2021-08-30] MEDS: FAMOTIDINE 20 MG TABLET PO SCH (10:21)
[2021-08-30] MEDS: METHOCARBAMOL 500 MG TABLET PO PRN ×3 (10:22→22:58)
[2021-08-30] MEDS: amLODIPine BESYLATE 10 MG TABLET (FP) PO SCH (10:22)
[2021-08-30] MEDS: THIAMINE HCL 100 MG TABLET (FP) PO SCH (22:56)
[2021-08-30] MEDS: MELATONIN 5 MG TABLETS PO SCH (22:56)
[2021-08-31] MEDS ORDERED: chlordiazePOXIDE HCL 10 MG CAPSULE PO ONE (05:00)
[2021-08-31] MEDS: hydrOXYzine PAMOATE 25 MG CAPSULE (FP) PO SCH ×3 (06:40→14:06)
[2021-08-31] MEDS: PRENATAL VITAMINS W/ FOLIC ACID TABLET (FP) PO SCH (10:08)
[2021-08-31] MEDS: METHOCARBAMOL 500 MG TABLET PO PRN (10:08)
[2021-08-31] MEDS: FAMOTIDINE 20 MG TABLET PO SCH (10:09)
[2021-08-31] MEDS: amLODIPine BESYLATE 10 MG TABLET (FP) PO SCH (10:09)
[2021-08-31] MEDS: NICOTINE 10 MG CARTRIDGE (INHALER) IH PRN (10:10)
[2021-08-31 14:17] VITALS: BP 100/71; PULSE 89; TEMP 97.7
== END 2021-08-31 15:10 | disposition other institution (70) | DRG 774 ==
LOC: YASAS 12:21 → Y3N 16:39
PROVIDERS: ADMIT Allergy & Immunology; ATTEND Allergy & Immunology
PROC: HZ2ZZZZ Detoxification Services for Substance Abuse Treatment (ICD-10-PCS; principal; 2021-08-26)
DX: F10.230 Alcohol dependence with withdrawal, uncomplicated (principal); F14.20 Cocaine dependence, uncomplicated; F12.20 Cannabis dependence, uncomplicated; F17.210 Nicotine dependence, cigarettes, uncomplicated; F32.A Depression, unspecified; F41.9 Anxiety disorder, unspecified; Z21 Asymptomatic human immunodeficiency virus [HIV] infection status; E87.6 Hypokalemia; I10 Essential (primary) hypertension; K86.0 Alcohol-induced chronic pancreatitis; K21.9 Gastro-esophageal reflux disease without esophagitis; M19.90 Unspecified osteoarthritis, unspecified site
CPT/HCPCS: 36415; 80053; 84132; 85027; 86780; C9803-CS; U0003; U0005

== ENCOUNTER 2021-08-31 15:25 | Inpatient (IN) | payer OTHER ==
[2021-08-31] MEDS ORDERED: hydrOXYzine PAMOATE 25 MG CAPSULE (FP) PO PRN (16:43)
[2021-08-31] MEDS ORDERED: NICOTINE POLACRILEX 2 MG GUM BUC PRN (16:43)
[2021-08-31] MEDS ORDERED: MAGNESIUM CITRATE 300 ML BOTTLE PO PRN (16:43)
[2021-08-31] MEDS ORDERED: BENZOCAINE/MENTHOL (CHLORASEPTIC ) LOZENGE MM PRN (16:43)
[2021-08-31] MEDS ORDERED: LOPERAMIDE HCL 2 MG CAPSULE PO PRN (16:43)
[2021-08-31] MEDS ORDERED: guaiFENesin 200 MG/10 ML 10 ML UNIT-DOSE CUPS PO PRN (16:43)
[2021-08-31] MEDS ORDERED: MAG HYDROX/AL HYDROX/SIMETH 30 ML UNIT-DOSE CUP PO PRN (16:43)
[2021-08-31] MEDS ORDERED: P-EPHED 60MG/TRIPROLIDI 2.5MG TABLET PO PRN (16:43)
[2021-08-31] MEDS ORDERED: MAGNESIUM HYDROX 2400MG/30ML ORAL SUSPENSION 30 ML CUP PO PRN (16:43)
[2021-08-31] MEDS ORDERED: ACETAMINOPHEN 325 MG TABLET (FP) PO PRN (16:43)
[2021-08-31] MEDS ORDERED: MELATONIN 5 MG TABLETS PO PRN (16:43)
[2021-08-31] MEDS ORDERED: IBUPROFEN 400 MG TABLET (FP) PO PRN (16:43)
[2021-08-31] MEDS ORDERED: THIAMINE HCL 100 MG TABLET (FP) PO SCH (22:00)
[2021-09-01 07:05] VITALS: TEMP 97.3
[2021-09-01] MEDS ORDERED: ELVITEG/COB/EMTRI/TENOF (GENVOYA) TABLET (NF) PO SCH (08:00)
[2021-09-01] MEDS ORDERED: FAMOTIDINE 20 MG TABLET PO SCH (10:00)
[2021-09-01] MEDS ORDERED: PRENATAL VITAMINS W/ FOLIC ACID TABLET (FP) PO SCH (10:00)
[2021-09-01] MEDS ORDERED: amLODIPine BESYLATE 10 MG TABLET (FP) PO SCH (10:00)
[2021-09-01 11:37] VITALS: BP 128/82; PULSE 79
== END 2021-09-01 13:53 | disposition left against medical advice (07) | DRG 770 ==
LOC: YASAS 15:25 → Y3W 15:26
PROVIDERS: ADMIT Allergy & Immunology; ATTEND Allergy & Immunology
PROC: HZ2ZZZZ Detoxification Services for Substance Abuse Treatment (ICD-10-PCS; principal; 2021-08-31)
DX: F10.20 Alcohol dependence, uncomplicated (principal); F14.20 Cocaine dependence, uncomplicated; F12.20 Cannabis dependence, uncomplicated; F17.210 Nicotine dependence, cigarettes, uncomplicated; Z21 Asymptomatic human immunodeficiency virus [HIV] infection status; I10 Essential (primary) hypertension

== ENCOUNTER 2022-06-21 09:22 | Inpatient (IN) | payer BC, OTHER ==
[2022-06-21 10:09] VITALS: BMI 19.8
[2022-06-21] MEDS ORDERED: MAG HYDROX/AL HYDROX/SIMETH 30 ML UNIT-DOSE CUP PO PRN (11:47)
[2022-06-21] MEDS ORDERED: NICOTINE 10 MG CARTRIDGE (INHALER) IH PRN (11:47)
[2022-06-21] MEDS ORDERED: MAGNESIUM HYDROX 2400MG/30ML ORAL SUSPENSION 30 ML CUP PO PRN (11:47)
[2022-06-21] MEDS ORDERED: DICYCLOMINE HCL 10 MG CAPSULE PO PRN (11:47)
[2022-06-21] MEDS ORDERED: BISMUTH SUBSALICYLATE 524 MG/30 ML PO PRN (11:47)
[2022-06-21] MEDS ORDERED: IBUPROFEN 600 MG TABLET (FP) PO PRN (11:47)
[2022-06-21] MEDS ORDERED: LOPERAMIDE HCL 2 MG CAPSULE PO PRN (11:47)
[2022-06-21] MEDS ORDERED: BENZOCAINE/MENTHOL (CHLORASEPTIC ) LOZENGE MM PRN (11:47)
[2022-06-21] MEDS ORDERED: ACETAMINOPHEN 325 MG TABLET (FP) PO PRN ×2 (11:47)
[2022-06-21] MEDS ORDERED: ONDANSETRON *ODT* 4 MG TABLET SL PRN (11:47)
[2022-06-21] MEDS ORDERED: NALOXONE HCL (KLOXXADO) 8 MG SPRAY NS PRN (11:47)
[2022-06-21] MEDS ORDERED: POLYETHYLENE GLYCOL (HEALTHYLAX) 3350 17 GM PACKET PO PRN (11:47)
[2022-06-21] MEDS ORDERED: IBUPROFEN 400 MG TABLET (FP) PO PRN (11:47)
[2022-06-21] MEDS ORDERED: IBUPROFEN 600 MG TABLET (FP) PO ONE (12:39)
[2022-06-21] MEDS ORDERED: amLODIPine BESYLATE 5 MG TABLET (FP) ONE (12:42)
[2022-06-21] MEDS: amLODIPine BESYLATE 10 MG TABLET (FP) PO SCH (12:43)
[2022-06-21] MEDS: PANTOPRAZOLE 40 MG TABLET PO SCH (12:52)
[2022-06-21] MEDS: METHOCARBAMOL 500 MG TABLET PO PRN ×2 (12:55→22:07)
[2022-06-21] MEDS: hydrOXYzine PAMOATE 25 MG CAPSULE (FP) PO PRN (12:56)
[2022-06-21] MEDS: THIAMINE HCL 100 MG TABLET (FP) PO SCH (22:07)
[2022-06-21] MEDS: MELATONIN 5 MG TABLETS PO SCH (22:07)
[2022-06-21] MEDS: GABAPENTIN 100 MG CAPSULE PO SCH (22:07)
[2022-06-22] MEDS: PRENATAL VITAMINS W/ FOLIC ACID TABLET (FP) PO SCH (10:05)
[2022-06-22] MEDS: ELVITEG/COB/EMTRI/TENOF (GENVOYA) TABLET (NF) PO SCH (10:06)
[2022-06-22] MEDS: PANTOPRAZOLE 40 MG TABLET PO SCH (10:06)
[2022-06-22] MEDS: GABAPENTIN 100 MG CAPSULE PO SCH ×2 (10:06→22:05)
[2022-06-22] MEDS: amLODIPine BESYLATE 10 MG TABLET (FP) PO SCH (10:06)
[2022-06-22] MEDS: diazePAM 5 MG TABLET PO SCH ×3 (10:34→22:06)
[2022-06-22 14:54] LABS: HEMATOCRIT 39.6 % (35.4-49); HEMOGLOBIN 13.7 GM/dL (11.7-16.9); MCH 34.7 pg (25.7-33.7); MCHC 34.5 g/dl (32.0-35.9); MEAN CELL VOLUME 100.7 fl (80-96); MEAN PLT VOLUME 7.4 fl (7.5-11.1); PLATELET COUNT 317 10^3/uL (134-434); RBC 3.94 M/mm3 (4.00-5.60); RDW 12.9 % (11.9-15.9); WHITE BLOOD COUNT 5.4 K/mm3 (4.0-10.0)
[2022-06-22 15:45] LABS: ALBUMIN 3.5 g/dl (3.4-5.0)
[2022-06-22 15:46] LABS: BILIRUBIN,TOTAL 1.1 mg/dL (0.2-1)
[2022-06-22 15:47] LABS: BLOOD UREA NITROGEN 8.6 mg/dL (7-18)
[2022-06-22 15:50] LABS: TOT PROT 6.8 g/dl (6.4-8.2)
[2022-06-22] MEDS: THIAMINE HCL 100 MG TABLET (FP) PO SCH (22:05)
[2022-06-22] MEDS: MELATONIN 5 MG TABLETS PO SCH (22:06)
[2022-06-23] MEDS: diazePAM 5 MG TABLET PO SCH ×4 (05:31→22:14)
[2022-06-23] MEDS: PRENATAL VITAMINS W/ FOLIC ACID TABLET (FP) PO SCH (10:41)
[2022-06-23] MEDS: PANTOPRAZOLE 40 MG TABLET PO SCH (10:42)
[2022-06-23] MEDS: ELVITEG/COB/EMTRI/TENOF (GENVOYA) TABLET (NF) PO SCH (10:42)
[2022-06-23] MEDS: amLODIPine BESYLATE 10 MG TABLET (FP) PO SCH (10:43)
[2022-06-23] MEDS: GABAPENTIN 100 MG CAPSULE PO SCH ×2 (10:43→22:14)
[2022-06-23] MEDS: THIAMINE HCL 100 MG TABLET (FP) PO SCH (22:13)
[2022-06-23] MEDS: MELATONIN 5 MG TABLETS PO SCH (22:13)
[2022-06-23] MEDS: hydrOXYzine PAMOATE 25 MG CAPSULE (FP) PO PRN (22:15)
[2022-06-24] MEDS: diazePAM 5 MG TABLET PO SCH ×3 (05:46→22:34)
[2022-06-24] MEDS: amLODIPine BESYLATE 10 MG TABLET (FP) PO SCH (10:20)
[2022-06-24] MEDS: GABAPENTIN 100 MG CAPSULE PO SCH ×2 (10:20→22:34)
[2022-06-24] MEDS: PANTOPRAZOLE 40 MG TABLET PO SCH (10:20)
[2022-06-24] MEDS: ELVITEG/COB/EMTRI/TENOF (GENVOYA) TABLET (NF) PO SCH (10:21)
[2022-06-24] MEDS: PRENATAL VITAMINS W/ FOLIC ACID TABLET (FP) PO SCH (10:21)
[2022-06-24] MEDS: hydrOXYzine PAMOATE 25 MG CAPSULE (FP) PO PRN (10:22)
[2022-06-24] MEDS: THIAMINE HCL 100 MG TABLET (FP) PO SCH (22:34)
[2022-06-24] MEDS: MELATONIN 5 MG TABLETS PO SCH (22:34)
[2022-06-25] MEDS: diazePAM 5 MG TABLET PO SCH ×2 (05:29→17:51)
[2022-06-25] MEDS: ELVITEG/COB/EMTRI/TENOF (GENVOYA) TABLET (NF) PO SCH (08:49)
[2022-06-25] MEDS: amLODIPine BESYLATE 10 MG TABLET (FP) PO SCH (10:06)
[2022-06-25] MEDS: GABAPENTIN 100 MG CAPSULE PO SCH ×2 (10:06→22:27)
[2022-06-25] MEDS: PRENATAL VITAMINS W/ FOLIC ACID TABLET (FP) PO SCH (10:06)
[2022-06-25] MEDS: PANTOPRAZOLE 40 MG TABLET PO SCH (10:06)
[2022-06-25] MEDS: hydrOXYzine PAMOATE 25 MG CAPSULE (FP) PO PRN (10:06)
[2022-06-25] MEDS: THIAMINE HCL 100 MG TABLET (FP) PO SCH (22:27)
[2022-06-25] MEDS: METHOCARBAMOL 500 MG TABLET PO PRN (22:27)
[2022-06-25] MEDS: MELATONIN 5 MG TABLETS PO SCH (22:28)
[2022-06-26] MEDS ORDERED: diazePAM 5 MG TABLET PO ONE (06:00)
[2022-06-26] MEDS: GABAPENTIN 100 MG CAPSULE PO SCH (09:46)
[2022-06-26] MEDS: PANTOPRAZOLE 40 MG TABLET PO SCH (09:46)
[2022-06-26] MEDS: amLODIPine BESYLATE 10 MG TABLET (FP) PO SCH (09:46)
[2022-06-26] MEDS: ELVITEG/COB/EMTRI/TENOF (GENVOYA) TABLET (NF) PO SCH (09:46)
[2022-06-26 09:48] VITALS: BP 119/68; PULSE 96; RESP 18; TEMP 98.7
[2022-06-26] MEDS: PRENATAL VITAMINS W/ FOLIC ACID TABLET (FP) PO SCH (09:48)
== END 2022-06-26 09:53 | disposition home or self-care (01) | DRG 774 ==
LOC: YASAS 09:22 → Y6N 12:14
PROVIDERS: ADMIT Allergy & Immunology; ATTEND Surgery
PROC: HZ2ZZZZ Detoxification Services for Substance Abuse Treatment (ICD-10-PCS; principal; 2022-06-21)
DX: F10.230 Alcohol dependence with withdrawal, uncomplicated (principal); F14.20 Cocaine dependence, uncomplicated; F13.20 Sedative, hypnotic or anxiolytic dependence, uncomplicated; F12.20 Cannabis dependence, uncomplicated; F17.210 Nicotine dependence, cigarettes, uncomplicated; F19.280 Other psychoactive substance dependence with psychoactive substance-induced anxiety disorder; F19.282 Other psychoactive substance dependence with psychoactive substance-induced sleep disorder; F32.A Depression, unspecified; B20 Human immunodeficiency virus [HIV] disease; Z79.899 Other long term (current) drug therapy; K31.9 Disease of stomach and duodenum, unspecified; M19.90 Unspecified osteoarthritis, unspecified site; R73.9 Hyperglycemia, unspecified; Z87.19 Personal history of other diseases of the digestive system
CPT/HCPCS: 36415; 80053; 82962; 83036; 85027; 86780; 87811; C9803-CS; U0003; U0005

== ENCOUNTER 2022-12-07 17:21 | Inpatient (IN) | payer BC, OTHER ==
[2022-12-07 19:48] VITALS: BMI 18.8
[2022-12-07] MEDS ORDERED: guaiFENesin 600 MG TABLET.ER (FP) PO PRN (23:00)
[2022-12-07] MEDS ORDERED: IBUPROFEN 400 MG TABLET (FP) PO PRN (23:00)
[2022-12-07] MEDS ORDERED: MAG HYDROX/AL HYDROX/SIMETH 30 ML UNIT-DOSE CUP PO PRN (23:00)
[2022-12-07] MEDS ORDERED: ACETAMINOPHEN 325 MG TABLET (FP) PO PRN (23:00)
[2022-12-07] MEDS ORDERED: DICYCLOMINE HCL 10 MG CAPSULE PO PRN (23:00)
[2022-12-07] MEDS ORDERED: POLYETHYLENE GLYCOL (HEALTHYLAX) 3350 17 GM PACKET PO PRN (23:00)
[2022-12-07] MEDS ORDERED: LOPERAMIDE HCL 2 MG CAPSULE PO PRN (23:00)
[2022-12-07] MEDS ORDERED: BENZOCAINE/MENTHOL (CHLORASEPTIC ) LOZENGE MM PRN (23:00)
[2022-12-07] MEDS ORDERED: ONDANSETRON *ODT* 4 MG TABLET SL PRN (23:00)
[2022-12-07] MEDS ORDERED: BISMUTH SUBSALICYLATE 524 MG/30 ML PO PRN (23:00)
[2022-12-07] MEDS ORDERED: BENZONATATE 200 MG CAPSULE PO PRN (23:00)
[2022-12-07] MEDS ORDERED: MAGNESIUM HYDROX 2400MG/30ML ORAL SUSPENSION 30 ML CUP PO PRN (23:00)
[2022-12-07] MEDS ORDERED: P-EPHED 60MG/TRIPROLIDI 2.5MG TABLET PO PRN (23:00)
[2022-12-07] MEDS ORDERED: IBUPROFEN 600 MG TABLET (FP) PO PRN (23:00)
[2022-12-08] MEDS ORDERED: cloNIDine HCL 0.1 MG TABLET PO ONE (02:03)
[2022-12-08] MEDS: hydrOXYzine PAMOATE 25 MG CAPSULE (FP) PO PRN ×2 (02:03→10:14)
[2022-12-08] MEDS: METHOCARBAMOL 500 MG TABLET PO PRN ×2 (02:03→10:15)
[2022-12-08] MEDS ORDERED: chlordiazePOXIDE HCL 25 MG CAPSULE PO PRN (09:04)
[2022-12-08] MEDS: amLODIPine BESYLATE 10 MG TABLET (FP) PO SCH (10:14)
[2022-12-08] MEDS: PRENATAL VITAMINS W/ FOLIC ACID TABLET (FP) PO SCH (10:15)
[2022-12-08] MEDS: chlordiazePOXIDE HCL 25 MG CAPSULE PO SCH ×3 (10:15→22:19)
[2022-12-08] MEDS: FAMOTIDINE 20 MG TABLET PO SCH (10:15)
[2022-12-08] MEDS: GABAPENTIN 100 MG CAPSULE PO SCH ×2 (10:15→22:18)
[2022-12-08] MEDS: ELVITEG/COB/EMTRI/TENOF (GENVOYA) TABLET PO SCH (10:29)
[2022-12-08 11:13] LABS: HEMATOCRIT 39.6 % (35.4-49); HEMOGLOBIN 13.2 GM/dL (11.7-16.9); MCHC 33.3 g/dl (32.0-35.9); MEAN CELL VOLUME 102.1 fl (80-96); MEAN PLT VOLUME 7.7 fl (7.5-11.1); PLATELET COUNT 266 10^3/uL (134-434); RBC 3.88 M/mm3 (4.00-5.60); RDW 13.3 % (11.9-15.9); WHITE BLOOD COUNT 8.6 K/mm3 (4.0-10.0)
[2022-12-08 11:54] LABS: ALBUMIN 3.8 g/dl (3.4-5.0)
[2022-12-08 11:56] LABS: CALCIUM 9.6 mg/dL (8.5-10.1)
[2022-12-08 11:57] LABS: BLOOD UREA NITROGEN 10.7 mg/dL (7-18)
[2022-12-08 12:00] LABS: CREATININE 0.9 mg/dL (0.55-1.3)
[2022-12-08 12:01] LABS: BILIRUBIN,TOTAL 0.6 mg/dL (0.2-1); TOT PROT 7.1 g/dl (6.4-8.2)
[2022-12-08] MEDS: THIAMINE HCL 100 MG TABLET (FP) PO SCH (22:18)
[2022-12-08] MEDS: MELATONIN 5 MG TABLETS PO SCH (22:19)
[2022-12-09] MEDS: chlordiazePOXIDE HCL 25 MG CAPSULE PO SCH ×4 (05:14→22:38)
[2022-12-09] MEDS: ELVITEG/COB/EMTRI/TENOF (GENVOYA) TABLET PO SCH (07:41)
[2022-12-09] MEDS: FAMOTIDINE 20 MG TABLET PO SCH (10:01)
[2022-12-09] MEDS: GABAPENTIN 100 MG CAPSULE PO SCH ×2 (10:01→22:36)
[2022-12-09] MEDS: amLODIPine BESYLATE 10 MG TABLET (FP) PO SCH (10:01)
[2022-12-09] MEDS: PRENATAL VITAMINS W/ FOLIC ACID TABLET (FP) PO SCH (10:01)
[2022-12-09] MEDS: THIAMINE HCL 100 MG TABLET (FP) PO SCH (22:36)
[2022-12-09] MEDS: MELATONIN 5 MG TABLETS PO SCH (22:36)
[2022-12-10] MEDS: chlordiazePOXIDE HCL 25 MG CAPSULE PO SCH ×2 (05:21→10:15)
[2022-12-10] MEDS: ELVITEG/COB/EMTRI/TENOF (GENVOYA) TABLET PO SCH (07:05)
[2022-12-10] MEDS: PRENATAL VITAMINS W/ FOLIC ACID TABLET (FP) PO SCH (10:14)
[2022-12-10] MEDS: FAMOTIDINE 20 MG TABLET PO SCH (10:15)
[2022-12-10] MEDS: GABAPENTIN 100 MG CAPSULE PO SCH (10:15)
[2022-12-10] MEDS: amLODIPine BESYLATE 10 MG TABLET (FP) PO SCH (10:15)
[2022-12-10 13:07] VITALS: BP 114/79; PULSE 68; RESP 18; TEMP 97.6
[2022-12-11] MEDS ORDERED: chlordiazePOXIDE HCL 10 MG CAPSULE PO PRN
[2022-12-11] MEDS ORDERED: chlordiazePOXIDE HCL 10 MG CAPSULE PO SCH (05:00)
[2022-12-12] MEDS ORDERED: chlordiazePOXIDE HCL 10 MG CAPSULE PO SCH (05:00)
[2022-12-13] MEDS ORDERED: chlordiazePOXIDE HCL 10 MG CAPSULE PO ONE (05:00)
== END 2022-12-10 14:59 | disposition left against medical advice (07) | DRG 770 ==
LOC: YASAS 17:21 → Y6N 12-08 01:16 → Y3N 12-09 15:31
PROVIDERS: ADMIT Allergy & Immunology; ATTEND Surgery
PROC: HZ2ZZZZ Detoxification Services for Substance Abuse Treatment (ICD-10-PCS; principal; 2022-12-08)
DX: F10.230 Alcohol dependence with withdrawal, uncomplicated (principal); F14.20 Cocaine dependence, uncomplicated; F12.20 Cannabis dependence, uncomplicated; F17.210 Nicotine dependence, cigarettes, uncomplicated; F10.282 Alcohol dependence with alcohol-induced sleep disorder; F32.A Depression, unspecified; Z21 Asymptomatic human immunodeficiency virus [HIV] infection status; I10 Essential (primary) hypertension; K21.9 Gastro-esophageal reflux disease without esophagitis; M17.0 Bilateral primary osteoarthritis of knee; M19.011 Primary osteoarthritis, right shoulder; M19.012 Primary osteoarthritis, left shoulder; R73.9 Hyperglycemia, unspecified; R63.4 Abnormal weight loss; Z68.1 Body mass index [BMI] 19.9 or less, adult
CPT/HCPCS: 36415; 80053; 83036; 85027; 86780

== ENCOUNTER 2023-08-16 14:03 | Inpatient (IN) | payer OTHER ==
[2023-08-16 14:27] VITALS: BMI 18.8
[2023-08-16] MEDS ORDERED: hydrOXYzine PAMOATE 25 MG CAPSULE (FP) PO PRN (17:10)
[2023-08-16] MEDS ORDERED: BISMUTH SUBSALICYLATE 524 MG/30 ML PO PRN (17:10)
[2023-08-16] MEDS ORDERED: NICOTINE POLACRILEX 2 MG GUM BUC PRN (17:10)
[2023-08-16] MEDS ORDERED: guaiFENesin 600 MG TABLET.ER (FP) PO PRN (17:10)
[2023-08-16] MEDS ORDERED: P-EPHED 60MG/TRIPROLIDI 2.5MG TABLET PO PRN (17:10)
[2023-08-16] MEDS ORDERED: BENZOCAINE/MENTHOL (CHLORASEPTIC ) LOZENGE MM PRN (17:10)
[2023-08-16] MEDS ORDERED: LOPERAMIDE HCL 2 MG CAPSULE PO PRN (17:10)
[2023-08-16] MEDS ORDERED: IBUPROFEN 400 MG TABLET (FP) PO PRN (17:10)
[2023-08-16] MEDS ORDERED: ONDANSETRON *ODT* 4 MG TABLET SL PRN (17:10)
[2023-08-16] MEDS ORDERED: BENZONATATE 200 MG CAPSULE PO PRN (17:10)
[2023-08-16] MEDS ORDERED: ACETAMINOPHEN 325 MG TABLET (FP) PO PRN (17:10)
[2023-08-16] MEDS ORDERED: DICYCLOMINE HCL 10 MG CAPSULE PO PRN (17:10)
[2023-08-16] MEDS ORDERED: MAGNESIUM HYDROX 2400MG/30ML ORAL SUSPENSION 30 ML CUP PO PRN (17:10)
[2023-08-16] MEDS ORDERED: MAG HYDROX/AL HYDROX/SIMETH 30 ML UNIT-DOSE CUP PO PRN (17:10)
[2023-08-16] MEDS ORDERED: POLYETHYLENE GLYCOL (HEALTHYLAX) 3350 17 GM PACKET PO PRN (17:10)
[2023-08-16] MEDS: MELATONIN 5 MG TABLETS PO SCH (22:05)
[2023-08-16] MEDS: THIAMINE HCL 100 MG TABLET (FP) PO SCH (22:05)
[2023-08-17] MEDS ORDERED: chlordiazePOXIDE HCL 25 MG CAPSULE PO PRN (08:40)
[2023-08-17] MEDS: chlordiazePOXIDE HCL 25 MG CAPSULE PO SCH (10:15)
[2023-08-17] MEDS: amLODIPine BESYLATE 10 MG TABLET (FP) PO SCH (10:15)
[2023-08-17] MEDS: PRENATAL VITAMINS W/ FOLIC ACID TABLET (FP) PO SCH (10:15)
[2023-08-17] MEDS: FAMOTIDINE 20 MG TABLET PO SCH (10:15)
[2023-08-17 11:45] LABS: HEMATOCRIT 40.8 % (35.4-49); HEMOGLOBIN 13.9 GM/dL (11.7-16.9); MEAN CELL VOLUME 99.9 fl (80-96); MEAN PLT VOLUME 7.7 fl (7.5-11.1); PLATELET COUNT 270 10^3/uL (134-434); RBC 4.09 M/mm3 (4.00-5.60); RDW 13.1 % (11.9-15.9)
[2023-08-17 11:47] LABS: POTASSIUM 3.9 mmol/L (3.5-5.1)
[2023-08-17 12:05] LABS: ALBUMIN 3.5 g/dl (3.4-5.0); TOT PROT 6.6 g/dl (6.4-8.2)
[2023-08-17 12:06] LABS: BLOOD UREA NITROGEN 8.2 mg/dL (7-18); CALCIUM 9.2 mg/dL (8.5-10.1)
[2023-08-17 12:08] LABS: BILIRUBIN,TOTAL 0.9 mg/dL (0.2-1); CREATININE 0.8 mg/dL (0.55-1.3)
[2023-08-18] MEDS: ELVITEG/COB/EMTRI/TENOF (GENVOYA) TABLET PO SCH (07:11)
[2023-08-18] MEDS: LIDOCAINE 5% TOPICAL PATCH TP SCH (12:16)
[2023-08-18] MEDS: LIDOCAINE PATCH REMOVAL MC SCH (22:24)
[2023-08-19] MEDS: chlordiazePOXIDE HCL 25 MG CAPSULE PO SCH (05:16)
[2023-08-19] MEDS: IBUPROFEN 600 MG TABLET (FP) PO PRN (22:51)
[2023-08-20] MEDS ORDERED: chlordiazePOXIDE HCL 10 MG CAPSULE PO PRN
[2023-08-20] MEDS: chlordiazePOXIDE HCL 10 MG CAPSULE PO SCH (05:23)
[2023-08-20] MEDS: METHOCARBAMOL 500 MG TABLET PO PRN (10:40)
[2023-08-21] MEDS: chlordiazePOXIDE HCL 10 MG CAPSULE PO SCH (05:45)
[2023-08-21 09:17] VITALS: RESP 16
[2023-08-21 17:51] VITALS: BP 126/77; PULSE 79; TEMP 97.3
[2023-08-22] MEDS ORDERED: chlordiazePOXIDE HCL 10 MG CAPSULE PO ONE (05:00)
== END 2023-08-21 17:20 | disposition home or self-care (01) | DRG 774 ==
LOC: YASAS 14:03 → Y6N 16:52
PROVIDERS: ADMIT Allergy & Immunology; ATTEND Surgery
PROC: HZ2ZZZZ Detoxification Services for Substance Abuse Treatment (ICD-10-PCS; principal; 2023-08-16)
DX: F10.230 Alcohol dependence with withdrawal, uncomplicated (principal); F14.20 Cocaine dependence, uncomplicated; F12.20 Cannabis dependence, uncomplicated; F17.210 Nicotine dependence, cigarettes, uncomplicated; F19.282 Other psychoactive substance dependence with psychoactive substance-induced sleep disorder; F32.A Depression, unspecified; F41.9 Anxiety disorder, unspecified; I10 Essential (primary) hypertension; K21.9 Gastro-esophageal reflux disease without esophagitis; M17.0 Bilateral primary osteoarthritis of knee; M19.011 Primary osteoarthritis, right shoulder; M19.012 Primary osteoarthritis, left shoulder; Z87.19 Personal history of other diseases of the digestive system
CPT/HCPCS: 36415; 80053; 80305; 80307; 85027; 86780; 93005; 93010

== ENCOUNTER 2024-07-18 13:04 | Inpatient (IN) | payer BC, OTHER ==
[2024-07-18 13:27] VITALS: BMI 18.3
[2024-07-18] MEDS ORDERED: NICOTINE POLACRILEX 2 MG LOZENGE BC PRN (13:43)
[2024-07-18] MEDS ORDERED: ONDANSETRON *ODT* 4 MG TABLET SL PRN (13:43)
[2024-07-18] MEDS ORDERED: DICYCLOMINE HCL 10 MG CAPSULE PO PRN (13:43)
[2024-07-18] MEDS ORDERED: NALOXONE (NARCAN) HCL 4 MG/0.1 ML SPRAY NS PRN (13:43)
[2024-07-18] MEDS ORDERED: guaiFENesin 600 MG TABLET.ER (FP) PO PRN (13:43)
[2024-07-18] MEDS ORDERED: IBUPROFEN 400 MG TABLET (FP) PO PRN (13:43)
[2024-07-18] MEDS ORDERED: LOPERAMIDE HCL 2 MG CAPSULE PO PRN (13:43)
[2024-07-18] MEDS ORDERED: MAGNESIUM HYDROX 2400MG/30ML ORAL SUSPENSION 30 ML CUP PO PRN (13:43)
[2024-07-18] MEDS ORDERED: P-EPHED 60MG/TRIPROLIDI 2.5MG TABLET PO PRN (13:43)
[2024-07-18] MEDS ORDERED: BENZONATATE 200 MG CAPSULE PO PRN (13:43)
[2024-07-18] MEDS ORDERED: NICOTINE POLACRILEX 2 MG GUM BUC PRN (13:43)
[2024-07-18] MEDS ORDERED: BISMUTH SUBSALICYLATE 524 MG/30 ML PO PRN (13:43)
[2024-07-18] MEDS ORDERED: POLYETHYLENE GLYCOL (HEALTHYLAX) 3350 17 GM PACKET PO PRN (13:43)
[2024-07-18] MEDS: METHOCARBAMOL 500 MG TABLET PO PRN (22:40)
[2024-07-18] MEDS: MELATONIN 5 MG TABLETS PO SCH (22:40)
[2024-07-18] MEDS: THIAMINE 100 MG TABLET PO SCH (22:40)
[2024-07-19] MEDS: ELVITEG/COB/EMTRI/TENOF (GENVOYA) TABLET PO SCH (08:50)
[2024-07-19] MEDS: amLODIPine BESYLATE 10 MG TABLET (FP) PO SCH (09:49)
[2024-07-19] MEDS: PANTOPRAZOLE 40 MG TABLET PO SCH (09:49)
[2024-07-19] MEDS: PRENATAL VITAMINS W/ FOLIC ACID TABLET (FP) PO SCH (09:49)
[2024-07-19 11:50] LABS: HEMATOCRIT 37.5 % (35.4-49); HEMOGLOBIN 12.9 GM/dL (11.7-16.9); MCH 33.7 pg (25.7-33.7); MCHC 34.5 g/dl (32.0-35.9); MEAN CELL VOLUME 97.5 fl (80-96); MEAN PLT VOLUME 7.6 fl (7.5-11.1); PLATELET COUNT 270 10^3/uL (134-434); RBC 3.84 M/mm3 (4.00-5.60); RDW 12.4 % (11.9-15.9); WHITE BLOOD COUNT 6.6 K/mm3 (4.0-10.0)
[2024-07-19 12:05] LABS: POTASSIUM 3.8 mmol/L (3.5-5.1)
[2024-07-19 12:09] LABS: ALBUMIN 3.4 g/dl (3.4-5.0); BLOOD UREA NITROGEN 9.4 mg/dL (7-18)
[2024-07-19 12:13] LABS: CREATININE 0.9 mg/dL (0.55-1.3)
[2024-07-19] MEDS ORDERED: LORazepam 1 MG TABLET PO PRN (12:13)
[2024-07-19 12:14] LABS: BILIRUBIN,TOTAL 1.1 mg/dL (0.2-1); TOT PROT 6.4 g/dl (6.4-8.2)
[2024-07-19] MEDS: LORazepam 2 MG TABLET PO SCH (17:16)
[2024-07-19] MEDS: metFORMIN HCL 500 MG TABLET (FP) PO SCH (17:16)
[2024-07-19] MEDS: IBUPROFEN 600 MG TABLET (FP) PO PRN (17:18)
[2024-07-20] MEDS: LORazepam 1 MG TABLET PO SCH (05:59)
[2024-07-21] MEDS ORDERED: LORazepam 0.5 MG TABLET PO PRN
[2024-07-21] MEDS: LORazepam 0.5 MG TABLET PO SCH (05:58)
[2024-07-22] MEDS: LORazepam 0.5 MG TABLET PO ONE (06:21)
[2024-07-22] MEDS: INSULIN (NOVOLOG) ASPART 100 UNITS/ML 10ML VIAL SQ ONE (07:19)
[2024-07-22] MEDS: ACETAMINOPHEN 325 MG TABLET (FP) PO PRN (07:20)
[2024-07-22] MEDS: INSULIN (NOVOLOG) ASPART 100 UNITS/ML 10ML VIAL SQ SCH (11:55)
[2024-07-22] MEDS: INSULIN ASPART SLIDING SCALE (NOVOLOG) 1 VIAL SQ SCH (12:01)
[2024-07-22] MEDS: BENZOCAINE/MENTHOL (CHLORASEPTIC ) LOZENGE MM PRN (17:03)
[2024-07-22] MEDS: MAG HYDROX/AL HYDROX/SIMETH 30 ML UNIT-DOSE CUP PO PRN (20:13)
[2024-07-22] MEDS: INSULIN (LEVEMIR) 100 UNITS/ML UNITS SQ SCH (22:05)
[2024-07-23 10:26] LABS: CALCIUM 10.2 mg/dL (8.5-10.1); POTASSIUM 3.5 mmol/L (3.5-5.1)
[2024-07-23 10:28] LABS: CREATININE 2.1 mg/dL (0.55-1.3)
[2024-07-23 10:29] LABS: BILIRUBIN,TOTAL 0.8 mg/dL (0.2-1); TOT PROT 7.7 g/dl (6.4-8.2)
[2024-07-23 10:35] LABS: BLOOD UREA NITROGEN 38.8 mg/dL (7-18)
[2024-07-23] MEDS: NALTREXONE HCL 50 MG TABLET PO ONE (13:12)
[2024-07-23] MEDS: INSULIN (LEVEMIR) 100 UNITS/ML UNITS SQ SCH (22:01)
[2024-07-24 07:30] VITALS: TEMP 98.4
[2024-07-24] MEDS: NALTREXONE HCL 50 MG TABLET PO SCH (09:48)
[2024-07-24 10:15] VITALS: BP 112/73; PULSE 77; RESP 18
== END 2024-07-24 11:28 | disposition home or self-care (01) | DRG 774 ==
LOC: YASAS 13:04 → Y6N 13:50
PROVIDERS: ADMIT Allergy & Immunology; ATTEND Family Medicine Addiction Medicine
PROC: HZ2ZZZZ Detoxification Services for Substance Abuse Treatment (ICD-10-PCS; principal; 2024-07-18)
DX: F10.230 Alcohol dependence with withdrawal, uncomplicated (principal); F14.10 Cocaine abuse, uncomplicated; F12.20 Cannabis dependence, uncomplicated; F17.210 Nicotine dependence, cigarettes, uncomplicated; F41.9 Anxiety disorder, unspecified; F32.A Depression, unspecified; Z21 Asymptomatic human immunodeficiency virus [HIV] infection status; I10 Essential (primary) hypertension; K21.9 Gastro-esophageal reflux disease without esophagitis; M19.012 Primary osteoarthritis, left shoulder; Z87.19 Personal history of other diseases of the digestive system; Z79.899 Other long term (current) drug therapy
CPT/HCPCS: 36415; 80053; 80305; 80307; 82962; 83036; 85027; 86780; 93005; 93010

== ENCOUNTER 2024-11-11 15:41 | Inpatient (IN) | payer OTHER ==
[2024-11-11 15:57] VITALS: BMI 19.5
[2024-11-11] MEDS ORDERED: BISMUTH SUBSALICYLATE 524 MG/30 ML PO PRN (18:25)
[2024-11-11] MEDS ORDERED: guaiFENesin 600 MG TABLET.ER (FP) PO PRN (18:25)
[2024-11-11] MEDS ORDERED: MAGNESIUM HYDROX 2400MG/30ML ORAL SUSPENSION 30 ML CUP PO PRN (18:25)
[2024-11-11] MEDS ORDERED: BENZOCAINE/MENTHOL (CHLORASEPTIC ) LOZENGE MM PRN (18:25)
[2024-11-11] MEDS ORDERED: MAG HYDROX/AL HYDROX/SIMETH 30 ML UNIT-DOSE CUP PO PRN (18:25)
[2024-11-11] MEDS ORDERED: DICYCLOMINE HCL 10 MG CAPSULE PO PRN (18:25)
[2024-11-11] MEDS ORDERED: BENZONATATE 200 MG CAPSULE PO PRN (18:25)
[2024-11-11] MEDS ORDERED: ONDANSETRON *ODT* 4 MG TABLET SL PRN (18:25)
[2024-11-11] MEDS ORDERED: LOPERAMIDE HCL 2 MG CAPSULE PO PRN (18:25)
[2024-11-11] MEDS ORDERED: POLYETHYLENE GLYCOL (HEALTHYLAX) 3350 17 GM PACKET PO PRN (18:25)
[2024-11-11] MEDS ORDERED: NALOXONE (NARCAN) HCL 4 MG/0.1 ML SPRAY NS PRN (18:25)
[2024-11-11] MEDS ORDERED: INSULIN (NOVOLOG) ASPART 100 UNITS/ML 10ML VIAL ONE (18:56)
[2024-11-11] MEDS: INSULIN (NOVOLOG) ASPART 100 UNITS/ML 10ML VIAL SQ ONE (19:18)
[2024-11-11] MEDS: INSULIN GLARGINE (LANTUS) 100 UNITS/ML UNITS SQ SCH (22:07)
[2024-11-11] MEDS: MELATONIN 5 MG TABLETS PO SCH (22:09)
[2024-11-11] MEDS: THIAMINE 100 MG TABLET PO SCH (22:09)
[2024-11-12] MEDS: INSULIN ASPART SLIDING SCALE (NOVOLOG) 1 VIAL SQ SCH (07:37)
[2024-11-12] MEDS: ELVITEG/COB/EMTRI/TENOF (GENVOYA) TABLET PO SCH (07:38)
[2024-11-12] MEDS: IBUPROFEN 600 MG TABLET (FP) PO PRN (07:41)
[2024-11-12] MEDS: METHOCARBAMOL 500 MG TABLET PO PRN (07:41)
[2024-11-12 08:15] LABS: MCHC 33.2 g/dl (32.3-36.5); MEAN CELL VOLUME 95.1 fl (79.0-92.2); MEAN PLT VOLUME 9.7 fl (9.4-12.4); RDW 12.0 % (12.2-16.4)
[2024-11-12 08:21] LABS: CO2 26 mmol/L (21-32); GLUCOSE,RANDOM 87 mg/dL (74-106)
[2024-11-12 08:24] LABS: CREATININE 1.0 mg/dL (0.55-1.3); SGOT/AST 24 U/L (15-37); SGPT/ALT 20 U/L (13-61)
[2024-11-12 08:26] LABS: TOT PROT 7.1 g/dl (6.4-8.2)
[2024-11-12 08:27] LABS: ALK PHOS 81 U/L (45-117)
[2024-11-12] MEDS: amLODIPine BESYLATE 10 MG TABLET (FP) PO SCH (10:21)
[2024-11-12] MEDS: PANTOPRAZOLE 40 MG TABLET PO SCH (10:21)
[2024-11-12] MEDS: PRENATAL VITAMINS W/ FOLIC ACID TABLET (FP) PO SCH (10:21)
[2024-11-12] MEDS: ACETAMINOPHEN 325 MG TABLET (FP) PO PRN (22:17)
[2024-11-13] MEDS: hydrOXYzine PAMOATE 25 MG CAPSULE (FP) PO PRN (23:49)
[2024-11-14] MEDS: IBUPROFEN 400 MG TABLET (FP) PO PRN (00:50)
[2024-11-15] MEDS: INSULIN GLARGINE (LANTUS) 100 UNITS/ML UNITS SQ SCH (22:22)
[2024-11-16 09:48] VITALS: BP 122/84; PULSE 77; RESP 15; TEMP 97.1
== END 2024-11-16 09:44 | disposition home or self-care (01) | DRG 775 ==
LOC: YASAS 15:41 → Y3N 19:05
PROVIDERS: ADMIT Neuromusculoskeletal Medicine & OMM; ATTEND Allergy & Immunology
PROC: HZ2ZZZZ Detoxification Services for Substance Abuse Treatment (ICD-10-PCS; principal; 2024-11-11)
DX: F10.230 Alcohol dependence with withdrawal, uncomplicated (principal); E11.9 Type 2 diabetes mellitus without complications; I10 Essential (primary) hypertension; K21.9 Gastro-esophageal reflux disease without esophagitis; Z21 Asymptomatic human immunodeficiency virus [HIV] infection status; F41.8 Other specified anxiety disorders
CPT/HCPCS: 36415; 80053; 80305; 80307; 82962; 85027; 86780; 93005; 93010